=== PATIENT | male | born 1960 | race Caucasian/White ===

== ENCOUNTER → 2019-02-19 | Outpatient (CLI) | payer BC ==
--- NOTE | 2019-02-20 08:08 | EST ---
EXERCISE STRESS DATE OF SERVICE: 02/19/2019 AGE: 59 SEX: Male HT: 5'10" WT: 200 pounds PROTOCOL: Herbert STAGE: II DURATION OF EXERCISE: 7 minutes HEART RATE REST: 64 BLOOD PRESSURE REST: 117/80 MAXIMUM HEART RATE ACHIEVED: 137 MAXIMUM BLOOD PRESSURE: 149/99 85% MPHR: 136 100% MPHR: 160 METS: 8.7 INDICATIONS: Chest pain. CLINICAL INFORMATION: STRESS DATA: Heart rate 64, pressure is 117/80 mmHg. Baseline EKG showed sinus mechanism. The patient exercised on the treadmill according to Herbert protocol for a total of 7 minutes and achieved 8.7 METs. The max heart rate was 137 which is about 86% of maximum predicted heart rate. Maximum blood pressure was 149/99 mmHg. Clinically the patient did not have any symptoms of chest pain or chest discomfort during the testing or on recovery. The EKG did not show any significant ST or T-wave abnormalities concerning for ischemia. CONCLUSION: 1. Excellent exercise tolerance. 2. Normal EKG in response to exercise. 3. Essentially normal stress test for the patient. MMODL / IJN: [id number] /
== END ==
LOC: RADNMMAIN 08:26
PROVIDERS: ATTEND Family Medicine
DX: R94.31 Abnormal electrocardiogram [ECG] [EKG] (principal)
CPT/HCPCS: 93017

== ENCOUNTER → 2021-10-13 | Outpatient (CLI) | payer BC ==
--- NOTE | 2021-10-13 11:18 | CA ---
Exercise Stress Test Report Name: Tremayne Hodgson Exam Date: 10/13/2021 09:34 Exam Location: [facility] Ht (in): 70 Wt (lb): 190 BSA: 2.04 Ordering Phys: Laura Hernandez MD Referring Phys: Laine Walsh Technologist: Jayro Beaulieu Age: 61 Gender: M : 1960 Procedure CPT: Indications: I10 hypertention ICD-10 Codes: Patient History: Hx of HTN, Family Hx of CAD, Elevated Cholesterol Medications: Atorvastatin, Lisinopril, Omeprazole Meds past 24 hrs: Pretest Chest Pain: STRESS TEST Herbert Protocol Exercise Duration (min:sec): 09:[address] Depressions (mm): Angina Score: Brower Score: Resting HR (bpm): 60 Peak HR (bpm): 142 Resting BP (mmHg): 135 / 89 Peak BP (mmHg): 162 / 72 MPHR: 158 Target HR: 134 % MPHR: 90 METS: 10.3 Total Dose: Peak Dose: Atropine: Double Product: 28751 BP Response: Stress Termination: TARGET HR REACHED/MAX EXERTION Stress Symptoms: No chest pain or symptoms Stress Summary: ECG ANALYSIS Resting ECG: Stress ECG: CONCLUSIONS Baseline EKG revealed a normal sinus rhythm without significant ST-T changes. Patient walked on a standard Herbert protocol for a total duration of 9 minutes and achieved a maximal heart rate of 142 bpm which is 90% of his predicted maximal no anginal or any significant arrhythmia EKG did not reveal any ST segment changes to indicate ischemia. This is a negative stress test with fair exercise capacity. The nuclear scan results which are more pertinent will be reported by the radiologist Dr. Mejia Mckeon MD (Electronically Signed) Final Date: 13 October 2021 11:17
--- NOTE | 2021-10-13 11:36 | NM ---
EXAMINATION TYPE: NM stress cardiolite complete DATE OF EXAM: 10/13/2021 COMPARISON: NONE HISTORY: Hypercholesterolemia and hypertension with family history of heart attack TECHNIQUE: After the intravenous administration of 9.5 mCi Tc 99m Sestamibi - Rest images obtained 4 5 minutes post injection. The patient exercised using a EFRAIN protocol and 1 minute prior to peak e xercise was injected with 26.1 mCi Tc 99m Sestamibi - Stress images obtained 10 minutes post injectio n. FINDINGS: Targeted heart rate was achieved during performance of the study. Review of stress and rest SPECT keren ges demonstrates no distinct perfusion abnormality. Gated analysis shows normal wall motion with an estimated left ventricular ejection fraction of 65 %. IMPRESSION: No scintigraphic evidence for reversible ischemia
--- NOTE | 2021-10-13 11:45 | CA ---
Transthoracic Echo Report Name: Tremayne Hodgson Age: 61 Gender: M : 1960 Exam Date: 10/13/2021 08:35 Exam Location: [place] [facility] Ht (in): 70 Wt (lb): 190 Ordering Physician: Laura Hernandez MD Attending/Referring Phys: Laine Walsh [facility] Meal Cooker Huma Hinton RDCS Procedure CPT: Indications: I10 hypertention Cardiac Hx: Technical Quality: Good Contrast 1: Total Dose (mL): Contrast 2: Total Dose (mL): MEASUREMENTS (Male / Female) Normal Values 2D ECHO LV Diastolic Diameter PLAX 4.3 cm 4.2 - 5.9 / 3.9 - 5.3 cm LV Systolic Diameter PLAX 2.8 cm IVS Diastolic Thickness 1.1 cm 0.6 - 1.0 / 0.6 - 0.9 cm LVPW Diastolic Thickness 1.2 cm 0.6 - 1.0 / 0.6 - 0.9 cm LV Relative Wall Thickness 0.5 RV Internal Dim ED PLAX 3.5 cm LA Systolic Diameter LX 3.3 cm 3.0 - 4.0 / 2.7 - 3.8 cm LA Volume 35.6 cm 18 - 58 / 22 - 52 cm M-MODE Aortic Root Diameter MM 3.1 cm MV E Point Septal Separation 0.8 cm AV Cusp Separation MM 2.2 cm DOPPLER AV Peak Velocity 117.8 cm/s AV Peak Gradient 5.6 mmHg MV Area PHT 4.6 cm Mitral E Point Velocity 81.5 cm/s Mitral A Point Velocity 77.2 cm/s Mitral E to A Ratio 1.1 MV Deceleration Time 166.3 ms MV E' Velocity 10.0 cm/s Mitral E to MV E' Ratio 8.1 TR Peak Velocity 233.8 cm/s TR Peak Gradient 21.9 mmHg Right Ventricular Systolic Press 26.7 mmHg FINDINGS Left Ventricle Left ventricular ejection fraction is estimated at 55-60 %. Normal Left ventricular size, wall thickness, systolic function with no obvious regional wall motion abnormalities. Borderline left ventricular hypertrophy. Right Ventricle Mild right ventricular dilatation. Right Atrium Normal right atrial size. Left Atrium Normal left atrial size. Mitral Valve Mild mitral regurgitation. Mitral valve thickened. Aortic Valve No aortic valve stenosis or regurgitation. Tricuspid Valve Mild tricuspid regurgitation. Pulmonic Valve . Pulmonic valve not well visualized. Pericardium Normal pericardium. Aorta Normal size aortic root and proximal ascending aorta. CONCLUSIONS Normal LV size and systolic function. No significant abnormality in the Doppler exam. No pericardial effusion Previewed by: Dr. Mejia Mckeon MD (Electronically Signed) Final Date: 13 October 2021 11:43
== END | disposition home or self-care (01) ==
LOC: RADNMMAIN 07:33
PROVIDERS: ATTEND Family Medicine
DX: E78.5 Hyperlipidemia, unspecified (principal); I10 Essential (primary) hypertension; Z82.49 Family history of ischemic heart disease and other diseases of the circulatory system
CPT/HCPCS: 93017; 93306; 78452; A9500